=== PATIENT | female | born 1995 | race Caucasian/White ===

== ENCOUNTER 2021-10-06 06:17 | Day surgery (SDC) | payer BC ==
[~2021-10-06] VITALS: Ht 165.1 cm; Wt 64.2 kg
[2021-10-06] MEDS ORDERED: CEFAZOLIN SOD 1 GM/ ISO 50 ML PREMIX IV ONE (07:00)
[2021-10-06] MEDS ORDERED: ONDANSETRON HCL 4 MG/2 ML VIAL IM PRN (08:45)
[2021-10-06] MEDS ORDERED: OXYCODONE/ACETAMINOPHEN 5-325 TABLET PO PRN ×2 (08:45)
[2021-10-06] MEDS ORDERED: IBUPROFEN 800 MG TABLET PO PRN (08:45)
[2021-10-06] MEDS ORDERED: HYDROmorphone 1 MG/ML INJ. CARTRIDGE IVP PRN (09:00)
[2021-10-06] MEDS ORDERED: hydrALAZINE HCL 20 MG/ML VIAL IVP PRN (09:00)
[2021-10-06] MEDS ORDERED: LABETALOL 100 MG/ 20ML VIAL IVP PRN (09:00)
[2021-10-06] MEDS ORDERED: ONDANSETRON HCL 4 MG/2 ML VIAL IVP PRN (09:00)
[2021-10-06] MEDS ORDERED: LR 1,000 ML IV SCH (09:00)
[2021-10-06 11:45] VITALS: BP_SYST 117
== END 2021-10-06 10:25 | disposition home or self-care (01) ==
LOC: SOR 06:17 → SMU 06:19 → SOR 10:25
PROVIDERS: ATTEND Obstetrics & Gynecology
DX: N75.1 Abscess of Bartholin's gland (principal); Z20.822 Contact with and (suspected) exposure to COVID-19
CPT/HCPCS: 36415; 56440; 87426; J0690